=== PATIENT | female | born 1990 | race Caucasian/White ===

== ENCOUNTER → 2016-06-10 | Outpatient (REF) | payer BC | LOC: M SFHCWAGY 11:52 | PROVIDERS: ATTEND Nurse Practitioner Family | DX: Z12.4 Encounter for screening for malignant neoplasm of cervix (principal) ==

== ENCOUNTER → 2016-08-03 | Outpatient (REF) | payer BC ==
[2016-08-03 13:59] LABS: MEAN CORPUSCULAR HEMOGLOBIN 31.4 pg (27.0-33.0); MEAN CORPUSCULAR HGB CONC 33.3 g/dl (32.0-36.5); MEAN CORPUSCULAR VOLUME 94.3 fl (80.0-96.0); RED CELL DISTRIBUTION WIDTH 11.7 % (11.5-14.5); WHITE BLOOD COUNT 5.4 K/mm3 (4.0-10.0)
[2016-08-03 14:08] LABS: ALBUMIN 4.2 GM/DL (3.2-5.2); ALKALINE PHOSPHATASE 45 U/L (45-117); ALT/SGPT 27 U/L (12-78); ANION GAP 8 MEQ/L (8-16); AST/SGOT 17 U/L (15-37); BILIRUBIN,TOTAL 0.4 MG/DL (0.2-1.0); BLOOD UREA NITROGEN 8 MG/DL (7-18); CALCIUM LEVEL 8.7 MG/DL (8.5-10.1); CARBON DIOXIDE LEVEL 27 MEQ/L (21-32); CHLORIDE LEVEL 108 MEQ/L (98-107); CHOLESTEROL LEVEL 151 MG/DL (<200); CREATININE FOR GFR 0.66 MG/DL (0.55-1.02); GLOMERULAR FILTRATION RATE > 60.0 (>60); GLUCOSE, FASTING 66 MG/DL (70-105); POTASSIUM SERUM 4.4 MEQ/L (3.5-5.1); SODIUM LEVEL 143 MEQ/L (136-145); TRIGLYCERIDES LEVEL 59 MG/DL (<150)
== END ==
LOC: M SFHCPLAZ 10:43
PROVIDERS: ATTEND Nurse Practitioner Adult Health
DX: Z00.00 Encounter for general adult medical examination without abnormal findings (principal)

== ENCOUNTER → 2016-09-13 | Emergency (ER) | payer BC ==
[~2016-09-13] VITALS: Ht 167.6 cm; Wt 59.0 kg
[~2016-09-13] MED LIST: MEDR1VL IM
[2016-09-13 10:37] VITALS: BP 152/78
== END | disposition home or self-care (01) ==
LOC: M ED 11:51
DX: F41.9 Anxiety disorder, unspecified (principal)

== ENCOUNTER → 2016-09-22 | Outpatient (REF) | payer BC ==
[2016-09-22 11:26] LABS: ANION GAP 6 MEQ/L (8-16); BLOOD UREA NITROGEN 11 MG/DL (7-18); CALCIUM LEVEL 8.9 MG/DL (8.5-10.1); CARBON DIOXIDE LEVEL 27 MEQ/L (21-32); CHLORIDE LEVEL 109 MEQ/L (98-107); GLOMERULAR FILTRATION RATE > 60.0 (>60); GLUCOSE, FASTING 81 MG/DL (70-105); POTASSIUM SERUM 4.2 MEQ/L (3.5-5.1); SODIUM LEVEL 142 MEQ/L (136-145)
== END ==
LOC: M SFHCPLAZ 08:56
PROVIDERS: ATTEND Nurse Practitioner Adult Health
DX: E16.1 Other hypoglycemia (principal)

== ENCOUNTER 2016-10-14 08:14 | Emergency (ER) | payer BC ==
[~2016-10-14] VITALS: Ht 167.6 cm; Wt 61.7 kg
[2016-10-14] MEDS ORDERED: OMEP20CA3 PO (08:29)
[2016-10-14] MEDS ORDERED: CEFU250T PO (08:29)
[2016-10-14] MEDS ORDERED: predniSONE 20 MG TAB PO ONE (09:30)
[2016-10-14 09:34] VITALS: BP 128/73
== END 2016-10-14 09:46 | disposition home or self-care (01) ==
LOC: M ED 09:35
DX: J02.9 Acute pharyngitis, unspecified (principal)

== ENCOUNTER 2016-11-11 08:19 | Emergency (ER) | payer BC ==
[~2016-11-11] VITALS: Ht 167.6 cm; Wt 61.2 kg
[~2016-11-11 08:19] MED LIST changes: +CEFU250T PO; +OMEP20CA3 PO
[2016-11-11] MEDS ORDERED: ALPRAZolam 0.25 MG TAB PO ONE (09:15)
[2016-11-11 10:26] VITALS: BP 124/65
[2016-11-11] MEDS ORDERED: ZITHTAB PO (10:26)
== END 2016-11-11 10:42 | disposition home or self-care (01) ==
LOC: M ED 08:57
DX: H66.92 Otitis media, unspecified, left ear (principal); H61.23 Impacted cerumen, bilateral; F41.9 Anxiety disorder, unspecified

== ENCOUNTER 2016-12-02 14:38 | Outpatient (RCR) | payer BC ==
[~2016-12-02 14:38] MED LIST changes: +CEFU1TAB20 PO; -CEFU250T PO; +ZITHTAB PO
== END 2016-12-04 ==
LOC: M PT 14:38
PROVIDERS: ATTEND Otolaryngology
DX: Z51.89 Encounter for other specified aftercare (principal); R42 Dizziness and giddiness

== ENCOUNTER 2016-12-12 20:03 | Emergency (ER) | payer BC ==
[~2016-12-12] VITALS: Ht 167.6 cm; Wt 59.1 kg
[2016-12-12] MEDS ORDERED: OMEP10CASR PO (20:18)
[2016-12-12] MEDS ORDERED: IBUP-1022 PO (22:18)
[2016-12-12 22:49] VITALS: BP 118/65
--- NOTE | 2016-12-13 08:28 | REP ---
Clinical: Trauma. Technique: Frontal view of the chest with multiple views of the left hemithorax. Findings: Frontal view of the chest demonstrates no acute cardiopulmonary process. Multiple views of the left hemithorax demonstrates no obvious acute rib fracture or pathology. Impression: Normal left rib series Signed by Fred Hess MD 12/13/2016 08:20 A
== END 2016-12-12 22:50 | disposition home or self-care (01) ==
LOC: M ED 20:03
DX: S23.41XA Sprain of ribs, initial encounter (principal); S20.212A Contusion of left front wall of thorax, initial encounter; F17.210 Nicotine dependence, cigarettes, uncomplicated; W22.09XA Striking against other stationary object, initial encounter; Y92.89 Other specified places as the place of occurrence of the external cause; Y93.89 Activity, other specified; Y99.9 Unspecified external cause status

== ENCOUNTER 2016-12-31 08:00 | Outpatient (RCR) | payer BC ==
[~2016-12-31 08:00] MED LIST changes: +IBUP-1022 PO; +OMEP10CASR PO
== END 2017-01-04 ==
LOC: M PT 08:00
PROVIDERS: ATTEND Otolaryngology
DX: Z51.89 Encounter for other specified aftercare (principal); R42 Dizziness and giddiness

== ENCOUNTER 2017-01-27 14:19 | Outpatient (RCR) | payer BC | END 2017-02-04 | LOC: M PT 14:19 | PROVIDERS: ATTEND Otolaryngology | DX: Z51.89 Encounter for other specified aftercare (principal) ==

== ENCOUNTER 2017-04-27 19:13 | Emergency (ER) | payer BC ==
[~2017-04-27] VITALS: Ht 167.6 cm; Wt 58.2 kg
[2017-04-27 19:13] VITALS: BP 147/66
[2017-04-27] MEDS ORDERED: CLINDAMYCIN 150 MG CAP PO ONE (20:30)
[2017-04-27] MEDS ORDERED: CLIN150C14 PO (20:31)
[2017-04-27] MEDS ORDERED: OXYC1TAB23 PO (20:31)
[2017-04-27] MEDS ORDERED: IBUP-1022 PO (20:31)
== END 2017-04-27 20:49 | disposition home or self-care (01) ==
LOC: M ED 19:13
DX: K02.9 Dental caries, unspecified (principal); K04.7 Periapical abscess without sinus; S02.5XXA Fracture of tooth (traumatic), initial encounter for closed fracture; X58.XXXA Exposure to other specified factors, initial encounter; Y92.89 Other specified places as the place of occurrence of the external cause; Y93.89 Activity, other specified; Y99.8 Other external cause status; Z88.0 Allergy status to penicillin; Z91.018 Allergy to other foods

== ENCOUNTER → 2017-06-23 | Outpatient (REF) | payer BC | LOC: M SFHCWAGY 14:57 | DX: Z12.4 Encounter for screening for malignant neoplasm of cervix (principal) | CPT/HCPCS: G0123 ==

== ENCOUNTER → 2019-06-27 | Outpatient (REF) | payer BC ==
[~2019-06-27] MED LIST changes: +CLIN150C14 PO; +OMEP1CAP73 PO; -OMEP20CA3 PO; +OXYC1TAB23 PO
== END ==
LOC: M SFHCWAGY 11:46
PROVIDERS: ATTEND Nurse Practitioner Family
DX: Z12.4 Encounter for screening for malignant neoplasm of cervix (principal)
CPT/HCPCS: 87624; G0123

== ENCOUNTER → 2021-02-21 | Outpatient (CLI) | payer OTHER ==
[~2021-02-21] MED LIST changes: -CLIN150C14 PO; +CLIN150C17 PO
[2021-02-21 11:53] LABS: HEMOGLOBIN 14.2 g/dl (12.0-15.5); MEAN CORPUSCULAR HEMOGLOBIN 31.8 pg (27.0-33.0); MEAN CORPUSCULAR HGB CONC 34.6 g/dl (32.0-36.5); MEAN CORPUSCULAR VOLUME 91.9 fl (80.0-96.0); PLATELET COUNT, AUTOMATED 253 10^3/uL (150-450); RED BLOOD COUNT 4.46 10^6/uL (4.00-5.40); WHITE BLOOD COUNT 4.6 10^3/uL (4.0-10.0)
[2021-02-21 12:59] LABS: ALBUMIN 3.8 GM/DL (3.2-5.2); ALT/SGPT 16 U/L (12-78); BILIRUBIN,TOTAL 0.4 MG/DL (0.2-1.0); BLOOD UREA NITROGEN 9 MG/DL (7-18); CALCIUM LEVEL 8.7 MG/DL (8.5-10.1); CARBON DIOXIDE LEVEL 23 MEQ/L (21-32); CHLORIDE LEVEL 108 MEQ/L (98-107); CREATININE FOR GFR 0.75 MG/DL (0.55-1.30); FERRITIN 33 NG/ML (8-252); GLOMERULAR FILTRATION RATE > 60.0 (>60); GLUCOSE, FASTING 85 MG/DL (70-100); IRON (FE) 120 UG/DL (50-170); PERCENT SATURATION 40.8 % (13.2-45.0); POTASSIUM SERUM 4.1 MEQ/L (3.5-5.1); SODIUM LEVEL 140 MEQ/L (136-145); TOTAL IRON BINDING CAPACITY 294 UG/DL (250-450); TOTAL PROTEIN 6.9 GM/DL (6.4-8.2)
== END ==
LOC: M WUC 10:03
PROVIDERS: ATTEND Nurse Practitioner Adult Health
DX: Z00.00 Encounter for general adult medical examination without abnormal findings (principal); Z86.2 Personal history of diseases of the blood and blood-forming organs and certain disorders involving the immune mechanism; Z13.29 Encounter for screening for other suspected endocrine disorder

== ENCOUNTER → 2021-08-08 | Outpatient (REF) | payer OTHER | LOC: M SFHCWAGY 17:11 | PROVIDERS: ATTEND Advanced Practice Midwife | DX: Z12.4 Encounter for screening for malignant neoplasm of cervix (principal) | CPT/HCPCS: 87624; G0123 ==

== ENCOUNTER 2024-06-03 21:24 | Emergency (ER) | payer OTHER ==
[~2024-06-03] VITALS: Ht 170.2 cm; Wt 77.5 kg
[2024-06-04] MEDS: diphenhydrAMINE 25MG CAP PO ONE (02:55)
[2024-06-04 03:04] VITALS: BP 120/80; TEMP 98.9; O2SAT 100
== END 2024-06-04 03:07 | disposition home or self-care (01) ==
LOC: M ED 21:24
DX: B08.6 Parapoxvirus infections (principal); E28.2 Polycystic ovarian syndrome; F17.210 Nicotine dependence, cigarettes, uncomplicated; Z88.1 Allergy status to other antibiotic agents; Z91.018 Allergy to other foods; Z79.1 Long term (current) use of non-steroidal anti-inflammatories (NSAID); Z79.2 Long term (current) use of antibiotics; Z79.899 Other long term (current) drug therapy

== ENCOUNTER → 2024-10-17 | Outpatient (CLI) | payer OTHER ==
[2024-10-17 13:49] LABS: BASO % 0.6 % (0.0-1.0); EOS # 0.1 10^3/uL (0.0-0.5); HEMATOCRIT 40.3 % (36.0-47.0); HEMOGLOBIN 13.3 g/dl (12.0-15.5); LYMPH # 1.5 10^3/uL (1.5-5.0); LYMPH % 30.3 % (24.0-44.0); MEAN CORPUSCULAR HEMOGLOBIN 30.8 pg (27.0-33.0); MEAN CORPUSCULAR VOLUME 93.3 fl (80.0-96.0); MONO # 0.5 10^3/uL (0.0-0.8); MONO % 9.8 % (2.0-8.0); NEUTROPHILS # 2.8 10^3/uL (1.5-8.5); NEUTROPHILS % 56.9 % (36.0-66.0); PLATELET COUNT, AUTOMATED 259 10^3/uL (150-450); RED BLOOD COUNT 4.32 10^6/uL (4.00-5.40); WHITE BLOOD COUNT 4.9 10^3/uL (4.0-10.0)
[2024-10-17 13:57] LABS: ALBUMIN 3.8 G/DL (3.2-5.2); ALKALINE PHOSPHATASE 57 U/L (35-104); ALT/SGPT 19 U/L (7.0-40); AST/SGOT 10 U/L (<34); BILIRUBIN,TOTAL 0.5 MG/DL (0.3-1.2); BLOOD UREA NITROGEN 8 MG/DL (9-23); CALCIUM LEVEL 9.1 MG/DL (8.5-10.1); CARBON DIOXIDE LEVEL 27 MMOL/L (20-31); CHLORIDE LEVEL 106 MMOL/L (98-107); CHOLESTEROL LEVEL 137 MG/DL (<200); CHOLESTEROL RISK RATIO 2.61 (<5); CREATININE FOR GFR 0.64 MG/DL (0.55-1.30); GLOMERULAR FILTRATION RATE > 90.0 (>60); GLUCOSE, FASTING 69 MG/DL (60-100); HDL CHOLESTEROL 52.4 MG/DL (>40); LDL CHOLESTEROL 70.2 MG/DL (<100); NON-HDL-C 84.6 MG/DL; POTASSIUM SERUM 4.5 MMOL/L (3.5-5.1); SODIUM LEVEL 141 MMOL/L (136-145); TOTAL PROTEIN 6.6 G/DL (5.7-8.2); TRIGLYCERIDES LEVEL 72 MG/DL (<150)
[2024-10-17 13:59] LABS: THYROID STIMULATING HORMONE 1.021 uIU/ML (0.55-4.78)
[2024-10-17 14:00] LABS: FREE T4 1.21 NG/DL (0.89-1.76)
== END ==
LOC: M PLALAB 09:42
PROVIDERS: ATTEND Nurse Practitioner Family
DX: R53.83 Other fatigue (principal)

== ENCOUNTER 2025-01-07 01:17 | Emergency (ER) | payer OTHER ==
[~2025-01-07] VITALS: Ht 167.6 cm; Wt 76.1 kg
[2025-01-07 01:21] VITALS: BP 114/69; TEMP 97.5; O2SAT 100
[2025-01-07] MEDS ORDERED: ONDA-282 PO (03:56)
[2025-01-07] MEDS: ONDANSETRON 4MG ORAL DISINTEGRATING TAB PO ONE (04:09)
[2025-01-07] MEDS: ONDANSETRON 4MG 2ML VIAL IV ONE (04:09)
== END 2025-01-07 04:19 | disposition home or self-care (01) ==
LOC: M ED 01:17
DX: K52.89 Other specified noninfective gastroenteritis and colitis (principal); F41.9 Anxiety disorder, unspecified; Z88.1 Allergy status to other antibiotic agents; Z91.018 Allergy to other foods; Z79.1 Long term (current) use of non-steroidal anti-inflammatories (NSAID); Z79.2 Long term (current) use of antibiotics; Z79.899 Other long term (current) drug therapy
CPT/HCPCS: 87486; 87581; 87633; 87798; 96374; 99283; J2405

== ENCOUNTER → 2025-04-26 | Outpatient (REF) | payer OTHER ==
[~2025-04-26] MED LIST changes: -IBUP-1022 PO; +IBUP600T42 PO; +ONDA-282 PO
[2025-04-28 14:23] LABS: HPV APTIMA Not Detected (Not Detected)
== END ==
LOC: M PLALAB 11:58
PROVIDERS: ATTEND Advanced Practice Midwife
DX: Z12.4 Encounter for screening for malignant neoplasm of cervix (principal); R87.610 Atypical squamous cells of undetermined significance on cytologic smear of cervix (ASC-US)
CPT/HCPCS: 87624; G0123